=== PATIENT | male | born 1970 | race Caucasian/White ===

== ENCOUNTER 2021-07-23 01:04 | Observation (INO) ==
[2021-07-23] MEDS ORDERED: ONDANSETRON 4 MG/2 ML VIAL IV STA (01:20)
[2021-07-23] MEDS ORDERED: NITROGLYCERIN 2% OINT 1 INCH/GM PACK TOP STA (01:20)
[2021-07-23] MEDS ORDERED: MORPHINE 2 MG/1 ML SYRINGE IV STA (01:20)
[2021-07-23] MEDS ORDERED: ASPIRIN 325 MG TABLET PO STA (01:20)
[2021-07-23 01:37] LABS: Basophils # 0.1 10*3/uL (0.0-0.2); Basophils % 0.6 % (0.0-0.8); Eosinophils # 0.1 10*3/uL (0.0-0.87); Eosinophils % 0.6 % (0.00-10.9); Hematocrit 49.2 VOL% (42.0-52.0); Hemoglobin 16.5 GM/DL (14.0-18.0); Immature Granulocytes % 0.5 %; Immature Granulocytes Absolute 0.07 #; Lymphocytes # 2.2 10*3/uL (1.4-4.0); Lymphocytes % 16.1 % (21.2-54.2); Mean Corpuscular HGB Conc 33.5 GM/DL (32-36); Mean Platelet Volume 9.7 FL (9.6-12.0); Monocytes % 4.7 % (1.7-12.7); Neutrophils % 77.5 % (38.7-73.9); Platelet Count 327 T/CUMM (130-400); Red Blood Count 5.59 MC/CUMM (3.8-5.5); Red Cell Distribution Width 12.4 % (9.3-17.3); White Blood Count 13.4 T/CUMM (4-12)
[2021-07-23 01:49] LABS: PT Patient Result 11.1 SECS (10.5-12.0)
[2021-07-23 01:56] LABS: Albumin 4.1 G/DL (3.4-5.0); Bilirubin,Total 0.6 MG/DL (0.20-1.00); Calcium 9.7 MG/DL (8.5-10.1); Osmolality,Calculated 287.8 MOS/KG (273-304); Total Protein 7.8 G/DL (6.4-8.2)
[2021-07-23] MEDS ORDERED: ENOXAPARIN 100 MG/ML SYRINGE SUBCUT STA (02:00)
[2021-07-23] MEDS ORDERED: MORPHINE 2 MG/1 ML SYRINGE IV ONE (02:15)
[2021-07-23] MEDS ORDERED: MORPHINE 2 MG/1 ML SYRINGE IV PRN (02:19)
[2021-07-23] MEDS ORDERED: ONDANSETRON 4 MG/2 ML VIAL IV PRN (02:19)
[2021-07-23] MEDS ORDERED: DEXTROSE 50% 25 GM/50 ML VIAL IV PRN (02:19)
[2021-07-23] MEDS ORDERED: GLUCAGON 1 MG VIAL IM PRN (02:19)
[2021-07-23 02:44] LABS: Risk Ratio 6.89; VLDL Cholesterol 24.6 MG/DL
[2021-07-23] MEDS: NITROGLYCERIN 2% OINT 1 INCH/GM PACK TOP SCH ×3 (05:25→17:09)
[2021-07-23] MEDS ORDERED: ROSUVASTATIN 20 MG TABLET PO SCH (07:14)
[2021-07-23] MEDS ORDERED: methylPREDNISolone SOD SUC 125 MG/2 ML VIAL IV SCH (07:44)
[2021-07-23] MEDS ORDERED: DIAZEPAM 5 MG TABLET PO ONE (07:45)
[2021-07-23] MEDS ORDERED: POTASSIUM CHLORIDE RIDER 10 MEQ/100 ML PREMIX IV PRN (07:45)
[2021-07-23] MEDS ORDERED: MAGNESIUM SULF RIDER 2 GM/50 ML PREMIX IV PRN (07:45)
[2021-07-23] MEDS: diphenhydrAMINE CAP 25 MG CAPSULE PO SCH ×3 (08:07→21:19)
[2021-07-23] MEDS: ATORVASTATIN 40 MG TABLET PO SCH ×2 (08:07→09:49)
[2021-07-23] MEDS: METOPROLOL TARTRATE 25 MG TABLET PO SCH ×2 (08:07→09:48)
[2021-07-23] MEDS: INSULIN REGULAR 100 UNIT/ML SUBCUT SCH ×4 (08:07→21:18)
[2021-07-23] MEDS: FAMOTIDINE 20 MG/2 ML VIAL IV SCH ×2 (08:08→21:21)
[2021-07-23] MEDS ORDERED: HEPARIN/NACL 0.9% 2 UNITS/ML 0 UNIT/0 ML BAG IV ONE (08:44)
[2021-07-23] MEDS ORDERED: ENOXAPARIN 150 MG/ML SYRINGE SUBCUT SCH (09:00)
[2021-07-23] MEDS ORDERED: ASPIRIN EC 325 MG TABLET PO SCH (09:00)
[2021-07-23] MEDS ORDERED: MIDAZOLAM 2 MG/2 ML VIAL ONE (09:13)
[2021-07-23] MEDS ORDERED: LIDOCAINE 1% 20 ML VIAL ONE (09:13)
[2021-07-23] MEDS ORDERED: HYDROmorphone 2 MG/1 ML VIAL ONE (09:13)
[2021-07-23] MEDS ORDERED: NITROGLYCERIN DRIP 50 MG/250 ML BOTTLE IV ONE (09:29)
[2021-07-23] MEDS ORDERED: VERAPAMIL 5 MG/2 ML VIAL ONE (09:30)
[2021-07-23] MEDS: LOSARTAN 25 MG TABLET PO SCH (09:48)
[2021-07-23] MEDS ORDERED: ENOXAPARIN 60 MG/0.6 ML SYRINGE ONE (09:49)
[2021-07-23] MEDS: PANTOPRAZOLE 40 MG TABLET PO SCH (09:49)
[2021-07-23] MEDS ORDERED: PRASUGREL 10 MG TABLET ONE (09:59)
[2021-07-23] MEDS ORDERED: METOPROLOL SUCCINATE XL 25 MG TABLET PO ONE (12:01)
[2021-07-23 13:20] LABS: CKMB % 13.8 %
[2021-07-23 13:24] LABS: High Sensitive Troponin I* 30275.6 ng/L (0-78)
[2021-07-24] MEDS: NITROGLYCERIN 2% OINT 1 INCH/GM PACK TOP SCH ×2 (00:10→06:11)
[2021-07-24] MEDS: diphenhydrAMINE CAP 25 MG CAPSULE PO SCH ×2 (01:40→09:15)
[2021-07-24 04:41] LABS: Basophils % 0.2 % (0.0-0.8); Hematocrit 47.6 VOL% (42.0-52.0); Immature Granulocytes % 0.6 %; Immature Granulocytes Absolute 0.11 #; Lymphocytes % 10.7 % (21.2-54.2); Mean Corpuscular HGB Conc 33.6 GM/DL (32-36); Mean Corpuscular Volume 89.1 FL (87-102); Mean Platelet Volume 9.6 FL (9.6-12.0); Monocytes % 6.1 % (1.7-12.7); Neutrophils % 82.4 % (38.7-73.9); Platelet Count 327 T/CUMM (130-400); Red Blood Count 5.34 MC/CUMM (3.8-5.5); Red Cell Distribution Width 12.7 % (9.3-17.3); White Blood Count 18.8 T/CUMM (4-12)
[2021-07-24 05:01] LABS: Osmolality,Calculated 280.7 MOS/KG (273-304); Potassium 4.6 MMOL/L (3.5-5.1)
[2021-07-24 05:07] LABS: CKMB % 11.7 %
[2021-07-24 05:08] LABS: High Sensitive Troponin I* 28953.9 ng/L (0-78)
[2021-07-24] MEDS: INSULIN REGULAR 100 UNIT/ML SUBCUT SCH ×2 (08:07→11:44)
[2021-07-24] MEDS ORDERED: PRASUGREL 10 MG TABLET PO SCH (09:00)
[2021-07-24] MEDS ORDERED: METOPROLOL SUCCINATE XL 25 MG TABLET PO SCH (09:00)
[2021-07-24] MEDS ORDERED: ASPIRIN EC 81 MG TABLET PO SCH (09:00)
[2021-07-24] MEDS: LOSARTAN 25 MG TABLET PO SCH (09:14)
[2021-07-24] MEDS: PANTOPRAZOLE 40 MG TABLET PO SCH (09:14)
[2021-07-24] MEDS: ATORVASTATIN 40 MG TABLET PO SCH (09:15)
[2021-07-24] MEDS: FAMOTIDINE 20 MG/2 ML VIAL IV SCH (09:15)
[2021-07-24 12:55] VITALS: BP 142/84
== END 2021-07-24 14:09 | disposition home or self-care (01) ==
LOC: N.EDINP 01:04 → N.ED 01:04 → SUATTDRO 02:19 → N.TELEN 04:09
PROVIDERS: ADMIT Internal Medicine; ATTEND Internal Medicine
PROC: CLCCHCL (ICD-10-PCS; 2021-07-23 09:15)